=== PATIENT | male | born 1960 | race Caucasian/White ===

== ENCOUNTER → 2023-10-08 | Outpatient (CLI) | payer OTHER | LOC: LAB 12:12 → LAB SHORT 12:12 | DX: C44.519 Basal cell carcinoma of skin of other part of trunk (principal) | CPT/HCPCS: 88305 ==

== ENCOUNTER → 2023-10-24 | Outpatient (CLI) | payer OTHER | LOC: LAB 09:50 → LAB SHORT 09:50 | DX: C44.519 Basal cell carcinoma of skin of other part of trunk (principal) | CPT/HCPCS: 88305 ==

== ENCOUNTER 2024-08-15 16:59 | Emergency (ER) | payer OTHER ==
[~2024-08-15] VITALS: Ht 177.8 cm; Wt 81.7 kg
[2024-08-15 17:29] LABS: BASOPHILS ABSOLUTE AUTO 0.03 K/mm3 (0.00-0.23); BASOPHILS PERCENT AUTO 0 % (0-2); EOSINOPHILS ABSOLUTE AUTO 0.11 K/mm3 (0.00-0.68); EOSINOPHILS PERCENT AUTO 1 % (0-6); Hematocrit 41.7 % (37.0-53.0); Hemoglobin 14.5 g/dL (13.5-17.5); IMMATURE GRAN ABSOLUTE AUTO 0.04 K/mm3 (0.00-0.10); IMMATURE GRAN PERCENT AUTO 0 % (0-1); LYMPHOCYTES ABSOLUTE AUTO 1.61 K/mm3 (0.84-5.20); LYMPHOCYTES PERCENT AUTO 17 % (21-46); MONOCYTES ABSOLUTE AUTO 0.87 K/mm3 (0.16-1.47); MONOCYTES PERCENT AUTO 9 % (4-13); Mean Corpuscular HGB 32.8 pg (26.0-34.0); Mean Corpuscular HGB Conc 34.8 g/dL (31.5-36.5); Mean Corpuscular Volume 94 fL (80-100); Mean Platelet Volume 8.2 fL (9.1-12.4); NEUTROPHILS PERCENT AUTO 73 % (41-73); Platelet Count 271 K/mm3 (150-400); RDW Coefficient Variation 12.2 % (11.7-14.2); RDW Standard Deviation 42.5 fL (35.1-46.3); Red Blood Cell Count 4.42 M/mm3 (4.30-5.90); White Blood Cell Count 9.76 K/mm3 (4.00-11.30)
[2024-08-15 17:34] LABS: Source, Urine Clean Catch
[2024-08-15 17:45] LABS: Appearance, Urine Clear (Clear); Bilirubin, Urine Neg (Neg); Blood, Urine Neg (Neg); Color, Urine Yellow (P-Yellow); Glucose Qualitative, Urine Neg (Neg); Ketones, Urine Neg (Neg); Leukocyte Esterase, Urine Neg (Neg); Nitrite, Urine Neg (Neg); Protein, Urine Neg (Neg); Specific Gravity, Urine 1.015 (1.003-1.022); Urobilinogen, Urine NORM (Normal)
[2024-08-15 17:57] LABS: Albumin, Blood 3.6 g/dL (3.4-5.0); Albumin/Globulin Ratio 0.9 (0.8-1.8); Bilirubin, Total 0.3 mg/dL (0.1-1.0); Bun/Creatinine Ratio 36.9 (12.0-20.0); Calcium, Blood 9.2 mg/dL (8.5-10.1); Creatinine, Blood 0.95 mg/dL (0.60-1.20); Globulin, Blood 3.9 g/dL (2.2-4.0); Potassium, Blood 4.1 mmol/L (3.5-5.5); Total Protein, Blood 7.5 g/dL (6.4-8.2)
[2024-08-15] MEDS ORDERED: TAMS.4ER PO (18:55)
[2024-08-15] MEDS ORDERED: ZOLP10 PO (18:55)
[2024-08-15] MEDS ORDERED: IRBE150 PO (18:55)
[2024-08-15 20:00] VITALS: BP 140/76
[2024-08-15] MEDS ORDERED: AMOCLA875 PO (20:12)
[2024-08-15] MEDS ORDERED: Amoxicillin/Clavulanate K 875 MG Tab PO ONE (20:15)
== END 2024-08-15 20:23 | disposition home or self-care (01) ==
LOC: ER 16:59
PROVIDERS: Physician Assistant
DX: K52.9 Noninfective gastroenteritis and colitis, unspecified (principal)
CPT/HCPCS: 74177; 80053; 81003; 85025; 99284-25; A9270; Q9967

== ENCOUNTER 2024-11-06 07:55 | Day surgery (SDC) | payer OTHER ==
[~2024-11-06] VITALS: Ht 177.8 cm; Wt 80.7 kg
[~2024-11-06 07:55] MED LIST: AMOCLA875 PO; IRBE150 PO; Lactated Ringer's 1,000 ML IV ONE; TAMS.4ER PO; ZOLP10 PO; propofoL 50 ML IV ONE
[2024-11-06] MEDS ORDERED: ALBU90OI (08:23)
[2024-11-06] MEDS ORDERED: Lactated Ringer's 1,000 ML IV ONE (09:20)
[2024-11-06] MEDS ORDERED: propofoL 50 ML IV ONE (10:00)
[2024-11-06 10:29] VITALS: BP 135/69
--- NOTE | 2024-11-06 10:34 | NUR ---
11/06/24 1034 KOREY RODAS NACL 4.5 CC USED TO LIFT POLYP
== END 2024-11-06 10:35 | disposition home or self-care (01) ==
LOC: ORSCSDS 07:55
PROVIDERS: Surgery
PROC: 0DBN8ZX Excision of Sigmoid Colon, Via Natural or Artificial Opening Endoscopic, Diagnostic (ICD-10-PCS; principal; 2024-11-06 09:30)
PROC: 0DBL8ZX Excision of Transverse Colon, Via Natural or Artificial Opening Endoscopic, Diagnostic (ICD-10-PCS; principal; 2024-11-06 09:30)
PROC: 0DBM8ZX Excision of Descending Colon, Via Natural or Artificial Opening Endoscopic, Diagnostic (ICD-10-PCS; principal; 2024-11-06 09:30)
PROC: 3E0H8KZ Introduction of Other Diagnostic Substance into Lower GI, Via Natural or Artificial Opening Endoscopic (ICD-10-PCS; principal; 2024-11-06 09:30)
DX: R10.31 Right lower quadrant pain (principal); R93.3 Abnormal findings on diagnostic imaging of other parts of digestive tract; D12.3 Benign neoplasm of transverse colon; D12.4 Benign neoplasm of descending colon; D12.5 Benign neoplasm of sigmoid colon; K63.5 Polyp of colon; K57.30 Diverticulosis of large intestine without perforation or abscess without bleeding; Z87.19 Personal history of other diseases of the digestive system; K21.9 Gastro-esophageal reflux disease without esophagitis; I10 Essential (primary) hypertension; Z79.899 Other long term (current) drug therapy
CPT/HCPCS: 88305; J2704; J7120